=== PATIENT | male | born 1935 | race African-American/Black ===

== ENCOUNTER 2021-06-16 12:34 | Outpatient (CLI) | payer MEDICARE | END 2021-06-16 12:35 | disposition home or self-care (01) | LOC: NAV RAD 12:34 | PROVIDERS: ATTEND Internal Medicine | DX: M17.11 Unilateral primary osteoarthritis, right knee (principal); I11.0 Hypertensive heart disease with heart failure; M25.551 Pain in right hip; M16.11 Unilateral primary osteoarthritis, right hip ==

== ENCOUNTER 2022-11-26 03:39 | Emergency (ER) | payer MEDICARE ==
[2022-11-26 04:21] LABS: #Basophils 0.1 thou/uL (0.0-0.2); #Eosinphils 0.2 thou/uL (0.0-0.7); #Lymphocytes 0.6 thou/uL (1.20-3.40); #Monocytes 0.8 thou/uL (0.11-0.59); #Neutrophils 6.3 thou/uL (1.40-6.50); %Basophils 0.7 % (0.0-1.0); %Eosinophils 2.7 % (0.0-10.0); %Lymphocytes 7.2 % (21.0-51.0); %Monocytes 9.5 % (0.0-10.0); %Neutrophils 79.9 % (42.0-75.0); Hemoglobin 7.3 g/dL (14.0-18.0); Mean Corpuscular HGB CONC 31.7 g/dL (32.0-36.0); Mean Corpuscular Hemoglobin 30.7 pg (27.0-31.0); Mean Corpuscular Volume 96.7 fl (78.0-98.0); Mean Platelet Volume 6.5 fL (7.4-10.4); Platelet Count 131 10x3/uL (130-400); Red Blood Cell (RBC) Count 2.38 mill/uL (4.70-6.10); White Blood Cell (WBC) Count 7.8 10x3/uL (4.8-10.8)
[2022-11-26 04:28] LABS: ALT (SGPT) 16 U/L (8-55); AST (SGOT) 16 U/L (5-34); Albumin 2.5 g/dL (3.4-4.8); Alkaline Phosphatase 39 U/L (40-110); Anion Gap 15 mmol/L (10-20); BUN (Urea Nitrogen) 79 mg/dL (8.4-25.7); Bilirubin, Total 0.4 mg/dL (0.2-1.2); Calc. Creatinine Clearance 0 mL/min (70-130); Calcium 8.3 mg/dL (7.8-10.44); Carbon Dioxide 19 mmol/L (23-31); Chloride 112 mmol/L (98-107); Estimated GFR 24; Globulin 2.7 g/dL (2.4-3.5); Glucose 98 mg/dL (83-110); Potassium 4.4 mmol/L (3.5-5.1); Protein, Total 5.2 g/dL (5.8-8.1); Sodium 142 mmol/L (136-145)
[2022-11-26 04:48] LABS: CKMB 3.3 ng/mL (0-6.6)
[2022-11-26] MEDS ORDERED: Pantoprazole 40 MG VIAL ONE (04:55)
[2022-11-26] MEDS ORDERED: Sodium Chloride 0.9% 500 ML ONE (04:55)
[2022-11-26 05:02] LABS: CK (CPK) 59 U/L (30-200); Lipase 83 U/L (8-78)
[2022-11-26 05:27] LABS: SARS-CoV-2 NAA Rapid Test Not Detected (NotDetected)
[2022-11-26 09:09] LABS: CKMB 3.5 ng/mL (0-6.6)
[2022-11-26] MEDS ORDERED: Enoxaparin Sodium 80 MG/0.8 ML SYRINGE ONE (10:28)
[2022-11-26] MEDS ORDERED: Acetaminophen 500 MG TAB ONE (10:48)
== END 2022-11-26 11:24 | disposition short-term general hospital (02) ==
LOC: NAV ERS 03:39
DX: I12.9 Hypertensive chronic kidney disease with stage 1 through stage 4 chronic kidney disease, or unspecified chronic kidney disease (principal); N18.9 Chronic kidney disease, unspecified; E78.5 Hyperlipidemia, unspecified; Z79.82 Long term (current) use of aspirin; Z79.899 Other long term (current) drug therapy; Z20.822 Contact with and (suspected) exposure to COVID-19
CPT/HCPCS: 0240U; 71045; 80053; 82550; 82553; 83690; 83880; 84484 ×2; 85025; 93005; 96372; 96374; 99285; C9113; J1650; J7030